=== PATIENT | female | born 1985 | race Caucasian/White ===

== ENCOUNTER 2017-07-20 01:37 | Emergency (ER) | payer OTHER ==
[~2017-07-20] VITALS: Ht 170.2 cm; Wt 59.0 kg
[2017-07-20 01:48] VITALS: BP 101/59; Ht 170.2 cm; Wt 59.0 kg
== END 2017-07-20 01:50 | disposition left against medical advice (07) ==
LOC: ED 01:37
DX: Z53.21 Procedure and treatment not carried out due to patient leaving prior to being seen by health care provider (principal)